=== PATIENT | male | born 1995 | race Two or more races ===

== ENCOUNTER 2023-07-24 18:12 | Emergency (ER) | payer OTHER ==
[~2023-07-24] VITALS: Ht 170.2 cm; Wt 136.1 kg
[2023-07-24] MEDS ORDERED: KETO10TA2 PO (19:17)
[2023-07-24 20:05] VITALS: BP 147/79; TEMP 98.1; O2SAT 98
== END 2023-07-24 20:05 | disposition home or self-care (01) ==
LOC: ER 18:20
DX: M54.50 Low back pain, unspecified (principal); Z79.899 Other long term (current) drug therapy